=== PATIENT | male | born 1995 ===

== ENCOUNTER 2017-07-06 03:42 | Emergency (ER) | payer MEDICAID ==
[2017-07-06 03:59] VITALS: BP 117/75; TEMP 97.8
--- NOTE | 2017-07-06 04:04 | C.PDOC ---
History Of Present Illness 22 year old male presents to the ED for evaluation of facial laceration and abrasion, status post trip and fall against a parked car bumper one hour prior to arrival. Patient states he left a democr[employer] and while running, tripped and hit his face and nose against a parked car bumper. He denies LOC, neck pain, or other injuries. 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 ) Current Symptoms Are (Timing): Still Present Location Of Injury: Anterior: Face Quality Of Symptoms: Painful, Swollen Recent travel outside of the [place]: No Past Medical History Reviewed: Historical Data, Nursing Documentation, Vital Signs Vital Signs: Last Vital Signs Temp 97.8 F 07/06/17 03:52 Pulse 62 07/06/17 04:53 Resp 17 07/06/17 04:53 BP 117/75 07/06/17 03:52 Pulse Ox 97 07/06/17 06:47 Family History: States: Unknown Family Hx - Social History Hx Alcohol Use: Yes Hx Substance Use: No - Immunization History Hx Tetanus Toxoid Vaccination: No Hx Influenza Vaccination: No Hx Pneumococcal Vaccination: No Review Of Systems Constitutional: Negative for: Fever, Chills Gastrointestinal: Negative for: Nausea, Vomiting Skin: Positive for: Other (laceration and abrasion to face ) Neurological: Negative for: Headache Physical Exam - Physical Exam Appears: Non-toxic, No Acute Distress Skin: Warm, Dry Head: Abrasion (2 cm abrasion to mid-forehead ), Laceration (1 cm laceration to nasal bridge ) Eye(s): bilateral: Normal Inspection, PERRL, EOMI Ear(s): Bilateral: Normal Nose: No Epistaxis Oral Mucosa: Moist Neck: Normal ROM, Supple Chest: Symmetrical, No Deformity Cardiovascular: Rhythm Regular, No Friction Rub, No Murmur Respiratory: Normal Breath Sounds, No Rales, No Rhonchi, No Wheezing Gastrointestinal/Abdominal: Soft, No Tenderness Extremity: Normal ROM, No Tenderness, No Swelling Neurological/Psych: Oriented x3, Normal Motor, Normal Sensation Gait: Steady ED Course And Treatment O2 Sat by Pulse Oximetry: 97 (RA) Pulse Ox Interpretation: Normal Laceration - Laceration Repair Nasal bridge Wound Length (In cm): 1 cm Description Of Wound: Linear Wound Cleansed With: Betadine, Sterile Saline Wound Examination: Irrigated With Saline, No FB With Wound Exploration, No Tendon Injury With Wound Exploration Wound Debridement/Revision: Wound Debrided, Wound Margins Revised Wound Closure: Steri Strips, Skin Glue Wound Complexity: Simple Disposition - Disposition Referrals: [facility] [Outside] Disposition: HOME/ ROUTINE Disposition Time: 04:48 Condition: GOOD Additional Instructions: Keep the wound clean and dry. DO NOT GET IT WET. Do not remove bandages for 5 days. Instructions: Nasal Contusion (ED) Forms: [employer] (Georgian) - Clinical Impression Clinical Impression: Nasal contusion, Abrasion, Laceration of nose - PA / CARE MGR / Resident Statement MD/DO has reviewed & agrees with the documentation as recorded. - Scribe Statement The provider has reviewed the documentation as recorded by the Scribe Christiana Membreno All medical record entries made by the Scribe were at my direction and personally dictated by me. I have reviewed the chart and agree that the record accurately reflects my personal performance of the history, physical exam, medical decision making, and the department course for this patient. I have also personally directed, reviewed, and agree with the discharge instructions and disposition.
[2017-07-06 04:54] VITALS: PULSE 62; RESP 17
[2017-07-06 06:45] VITALS: O2SAT 97
== END 2017-07-06 04:53 | disposition home or self-care (01) ==
LOC: C.ER 03:42
DX: S01.21XA Laceration without foreign body of nose, initial encounter (principal); W01.198A Fall on same level from slipping, tripping and stumbling with subsequent striking against other object, initial encounter; Y93.02 Activity, running; Y92.89 Other specified places as the place of occurrence of the external cause